=== PATIENT | female | born 1945 | race Caucasian/White ===

== ENCOUNTER 2020-01-06 05:49 | Observation (INO) ==
[2020-01-06] MEDS ORDERED: Lactated Ringers 1000 ml BAG 1,000 ML IV SCH (06:00)
[2020-01-06] MEDS ORDERED: Buffered Lidocaine 1% SYRIN 1 ml INTRADERM ONE ×2 (06:00→06:22)
[2020-01-06] MEDS ORDERED: Famotidine IV 10 MG/ML 2 ml VIAL (20 mg) IV ONE (06:00)
[2020-01-06] MEDS ORDERED: Famotidine IV 10 MG/ML 2 ml VIAL (20 mg) ONE (06:22)
[2020-01-06] MEDS ORDERED: ceFAZolin 2 GM PREMIX 2 GM/50 ML BAG ONE (06:22)
[2020-01-06] MEDS ORDERED: fentaNYL 250 mcg/5 ml 50 MCG/ML 5 ml VIAL (250 MCG) ONE (06:50)
[2020-01-06] MEDS ORDERED: Dexamethasone IV 4 MG/ML VIAL 1 ml VIAL ONE (06:51)
[2020-01-06] MEDS ORDERED: Propofol 10 MG/ML 20 ML BTL ONE (06:51)
[2020-01-06] MEDS ORDERED: Succinylcholine 200 mg VIAL 20 mg/ml 10 ml VIAL (200 mg) ONE (06:51)
[2020-01-06] MEDS ORDERED: Lidocaine 2% PF 5 ML VIAL ONE ×2 (06:51→08:47)
[2020-01-06] MEDS ORDERED: Ondansetron 4 mg VIAL 2 MG/ML 2 ml VIAL ONE (06:51)
[2020-01-06] MEDS ORDERED: Rocuronium 50 mg VIAL 10 mg/ml 5 ml VIAL (50 mg) ONE (06:51)
[2020-01-06] MEDS ORDERED: Midazolam 2 mg/2 ml VIAL 1 mg/ml 2 ml VIAL (2 mg) ONE (06:51)
[2020-01-06] MEDS ORDERED: Ketamine HCL 50 mg/ml 10 ml VIAL (500 MG) ONE (06:51)
[2020-01-06] MEDS ORDERED: Bacitracin INJECTION 50,000 UNITS ONE (07:06)
[2020-01-06] MEDS ORDERED: Bupivacaine 0.25% SDV 30 ML ONE (07:07)
[2020-01-06] MEDS ORDERED: Artificial Tear OPHTH.OINT 3.5 GM ONE (07:15)
[2020-01-06] MEDS ORDERED: Sugammadex 500 MG/5 ML 5 ml VIAL IV PUSH ONE (08:47)
[2020-01-06] MEDS ORDERED: EPHEDrine (Pressors) 50 MG/ML VIAL ONE (08:47)
[2020-01-06] MEDS ORDERED: Phenylephrine 40 mcg/mL 10mL (400mcg) SYRINGE ONE (08:47)
[2020-01-06] MEDS ORDERED: HYDROcodone/ACETAMIN 5/325 mg TAB PO PRN ×2 (09:31→10:20)
[2020-01-06] MEDS ORDERED: Naloxone 0.4 mg VIAL 0.4 mg/ml 1 ml VIAL IV PRN (09:31)
[2020-01-06] MEDS ORDERED: fentaNYL 100 mcg/2 ml 50 MCG/ML VIAL IV PRN (09:31)
[2020-01-06] MEDS ORDERED: Ondansetron 4 mg VIAL 2 MG/ML 2 ml VIAL IV PRN ×2 (09:31→10:20)
[2020-01-06] MEDS ORDERED: DiMENhydriNATE IV 50 mg/ml 1 ml VIAL IV PUSH PRN (09:31)
[2020-01-06] MEDS ORDERED: Magnesium Hydroxide LIQ 30 ML UDC PO PRN (10:20)
[2020-01-06] MEDS ORDERED: Acetaminophen IV 1 GM/100ML 100 ML ONE (11:49)
[2020-01-06] MEDS: HYDROcodone/ACETAMIN 5/325 mg TAB PO PRN ×2 (12:51→19:27)
[2020-01-06] MEDS ORDERED: CMCS: Simvastatin 20 mg TAB (NF) PO SCH (21:00)
[2020-01-06] MEDS ORDERED: Calcium/Vitamin D TAB 250/125 TAB PO SCH (21:00)
[2020-01-07 07:57] VITALS: BP 132/50
[2020-01-07] MEDS: HYDROcodone/ACETAMIN 5/325 mg TAB PO PRN ×2 (08:17→11:41)
[2020-01-07] MEDS ORDERED: MULTIVITAMIN CA IRON MINERALS PO SCH (09:00)
[2020-01-07] MEDS ORDERED: Multivitamins/Minerals TAB PO SCH (09:02)
== END 2020-01-07 11:56 | disposition home or self-care (01) ==
LOC: OR 05:49 → SSU 10:20 → INTOOBSV 10:20
PROVIDERS: ADMIT Neurological Surgery; ATTEND Internal Medicine